=== PATIENT | female | born 1990 | race American Indian/Alaskan Native ===

== ENCOUNTER 2017-07-29 12:06 | Emergency (ER) | payer OTHER ==
--- NOTE | 2017-07-29 12:54 | UC ---
Throat Pain/Nasal Howard HPI - HPI Summary HPI Summary: Patient presents to with CC of cough, nasal congestion and assocated fevers. She reports symptoms began 4 days ago and progressively worsening. She reports chest pain and shortness of breath during coughing fits for the past 2 days. She feels "pressure" in her chest "when I cough" intermittently productive of clear sputum. She reports intermittent fevers responsive to ibuprofen. She complains of myalgias and chills, but no n/v/abd pain or bowel irregulariteis. no sick contacts. History of asthma, but no relief from albuterol inhaler use. Nonsmoker. PMHx of asthma, seasonal allergies. - History of Current Complaint Chief Complaint: UCGeneralIllness Stated Complaint: RESPIRATORY Time Seen by Provider: 07/29/17 12:53 Hx Obtained From: Patient Hx Last Menstrual Period: tubal - Allergies/Home Medications Allergies/Adverse Reactions: Allergies Allergy/AdvReac Type Severity Reaction Status Date / Time Bee Venom Allergy Intermediate Swelling Verified 07/29/17 12:36 Iodine Allergy Mild Itching Verified 07/29/17 12:36 Iodinated Diagnostic Agents Allergy Itching Verified 07/29/17 12:36 Home Medications: Home Medications [id number] [Vicks Dayquil/Nyquil Marija] 1 liq PO DAILY [History Confirmed 07/29/17] PMH/Surg Hx/FS Hx/Imm Hx - Additional Past Medical History Additional PMH: see hpi Previously Healthy: Yes - Surgical History Surgical History: Yes Surgery Procedure, Year, and Place: jaw repair, T & A, appy, cholecystectomy, TUBAL - Family History Known Family History: Positive: Unknown - Social History Alcohol Use: Rare Substance Use Type: None Smoking Status (MU): Never Smoked Tobacco Review of Systems All Other Systems Reviewed And Are Negative: Yes Physical Exam Triage Information Reviewed: Yes Appearance: Well-Appearing, No Pain Distress, Well-Nourished Vital Signs: Initial Vital Signs Temp 97.5 F 07/29/17 12:32 Pulse 79 07/29/17 12:32 Resp 16 07/29/17 12:32 BP 124/72 07/29/17 12:32 Pulse Ox 97 07/29/17 12:32 Vital Signs Reviewed: Yes Eye Exam: Normal Eyes: Positive: Conjunctiva Clear ENT: Positive: Hearing grossly normal, Pharynx normal, Pharyngeal erythema - mild, Nasal congestion, Nasal drainage, TMs normal, Uvula midline Dental Exam: Normal Neck exam: Normal Neck: Positive: Supple, Nontender, No Lymphadenopathy. Negative: Nuchal Rigidity Respiratory Exam: Normal Respiratory: Positive: Chest non-tender, Lungs clear, Normal breath sounds, No respiratory distress, No accessory muscle use. Negative: Respiratory distress Cardiovascular Exam: Normal Cardiovascular: Positive: RRR, No Murmur, Pulses Normal, Brisk Capillary Refill Abdominal Exam: Normal Abdomen Description: Positive: Nontender, Soft Neurological: Positive: Alert Psychological: Positive: Age Appropriate Behavior Skin Exam: Normal Throat Pain/Nasal Course/Dx - Differential Dx/Diagnosis Provider Diagnoses: Viral URI with post nasal drip. Discharge - Discharge Plan Condition: Stable Disposition: HOME Forms: *Gen. Provider Communication Referrals: Sarmad Lei MD [Primary Care Provider] - If Needed Additional Instructions: As we discussed, you have a viral upper respiratory infection with post nasal drip. I advise Flonase nasal spray - twice daily in addition to restarting your daily allergy medication until symptoms improve. Please rest, and drink plenty of fluids. Your symptoms may persist for several more days, but should begin to feel better within 1 week. Should your symptoms worsen or not improve, please return or see your regular doctor for reevaluation.
[2017-07-29 13:17] VITALS: BP 124/72
== END 2017-07-29 13:25 | disposition home or self-care (01) ==
LOC: UCCORT 12:06
DX: J06.9 Acute upper respiratory infection, unspecified (principal); R09.82 Postnasal drip
CPT/HCPCS: 99211; G0463

== ENCOUNTER 2019-06-14 08:24 | Emergency (ER) | payer OTHER ==
[2019-06-14 08:39] VITALS: BP 123/78
--- NOTE | 2019-06-14 08:58 | UC ---
Abdominal Pain Female HPI - HPI Summary HPI Summary: abdominal pain x 2 days pain is cramping, 5 out 10 worse with eating, nothing is making it better + nausea and vomiting , + fever, chills, no diarrhea, no constipation , no urinary sx - History of Current Complaint Chief Complaint: UCGeneralIllness Stated Complaint: FEVER,NAUSEA,BODY ACHES,CHILLS Time Seen by Provider: 06/14/19 08:44 Hx Obtained From: Patient Hx Last Menstrual Period: 04/2019- TUBAL ?: No Onset/Duration: Gradual Onset, Lasting Days - 1, Still Present Timing: Constant Severity Initially: Moderate Severity Currently: Moderate Pain Intensity: 5 Location: Diffuse Radiates: No Character: Cramping Aggravating Factor(s): Food Alleviating Factor(s): NPO Associated Signs and Symptoms: Positive: Fever, Cough, Decreased Appetite, Nausea, Vomiting. Negative: Diaphoresis, Chest Pain, Back Pain, Urinary Symptoms, Vaginal Bleeding, Vaginal Discharge, Diarrhea Allergies/Adverse Reactions: Allergies Allergy/AdvReac Type Severity Reaction Status Date / Time bee venom protein (honey bee) Allergy Swelling Verified 06/14/19 08:33 Iodinated Contrast Media Allergy Itching Verified 06/14/19 08:33 [Iodinated Contrast- Oral and IV Dye] iodine Allergy Itching Verified 06/14/19 08:33 Home Medications: Home Medications Acetaminophen TAB* [Tylenol TAB*] 650 mg PO Q4H PRN 06/14/19 [History Confirmed 06/14/19] PMH/Surg Hx/FS Hx/Imm Hx Respiratory History: Asthma - Surgical History Surgical History: Yes Surgery Procedure, Year, and Place: jaw repair, T & A, appy, cholecystectomy, TUBAL - Family History Known Family History: Positive: Unknown Negative: Diabetes - Social History Alcohol Use: Rare Substance Use Type: None Smoking Status (MU): Never Smoked Tobacco Review of Systems All Other Systems Reviewed And Are Negative: Yes Constitutional: Positive: Fever, Chills, Fatigue Skin: Positive: Negative Eyes: Positive: Negative ENT: Positive: Negative Respiratory: Positive: Cough Cardiovascular: Positive: Negative Gastrointestinal: Positive: Abdominal Pain, Vomiting, Nausea. Negative: Diarrhea Genitourinary: Positive: Negative Is Patient Immunocompromised?: No Physical Exam Triage Information Reviewed: Yes Appearance: Well-Appearing, No Pain Distress, Well-Nourished Vital Signs: Initial Vital Signs Temp 98.4 F 06/14/19 08:34 Pulse 80 06/14/19 08:34 Resp 18 06/14/19 08:34 BP 123/78 06/14/19 08:34 Pulse Ox 97 06/14/19 08:34 Vital Signs Reviewed: Yes Eye Exam: Normal Eyes: Positive: Conjunctiva Clear ENT: Positive: Normal ENT inspection, Hearing grossly normal, Pharynx normal Neck: Positive: Supple, Nontender, No Lymphadenopathy Respiratory: Positive: Chest non-tender, Lungs clear, Normal breath sounds Cardiovascular: Positive: RRR, No Murmur, Pulses Normal Abdominal Exam: Normal Abdomen Description: Positive: Nontender, Soft. Negative: CVA Tenderness (R), CVA Tenderness (L), Distended, Guarding Bowel Sounds: Positive: Present Abd Pain Female Course/Dx - Differential Dx/Diagnosis Provider Diagnosis: Gastritis Discharge ED - Sign-Out/Discharge Documenting (check all that apply): Patient Departure All imaging exams completed and their final reports reviewed: No Studies - Discharge Plan Condition: Stable Disposition: HOME Prescriptions: Ondansetron ODT TAB* [Zofran 4 MG Odt TAB*] 8 mg PO Q8H PRN #9 tab.odt PRN Reason: Nausea/Vomiting Patient Education Materials: Viral Syndrome (ED) Forms: *Work Release Referrals: Sarmad Lei MD [Primary Care Provider] - If Needed - Billing Disposition and Condition Condition: STABLE Disposition: Home
== END 2019-06-14 08:55 | disposition home or self-care (01) ==
LOC: UCCORT 08:24
DX: K29.70 Gastritis, unspecified, without bleeding (principal); R53.83 Other fatigue; J45.909 Unspecified asthma, uncomplicated; Z91.09 Other allergy status, other than to drugs and biological substances; Z91.030 Bee allergy status; Z91.041 Radiographic dye allergy status
CPT/HCPCS: 99212; G0463

== ENCOUNTER 2019-12-03 12:53 | Emergency (ER) | payer OTHER ==
--- NOTE | 2019-12-03 13:04 | UC ---
FLU HPI - HPI Summary HPI Summary: Patient is a 29yo female presenting with sob, cough, and fever. States cough and sob began last night and fever of 101 occurred this morning at 7am. Patient also notes chills and body aches since last night. Cough is nonproductive. Denies nasal congestion and sore throat. SOB is constant but notes that she believes some of it may be from anxiety. Has noticed wheezing at times. Denies chest pain and discomfort. Notes fatigue and decreased appetite since yesterday. Denies n/v/d. Notes PMHx significant for asthma, which she uses and albuterol inhaler for every day and is well controlled. States she used it yesterday but needs a refill because she is now out. Has a symbicort inhaler as well but states she has not needed it. Taking tylenol today with fever relief. Denies known ill contacts. - History of Current Complaint Stated Complaint: FEVER,COUGH SOB Hx Obtained From: Patient Hx Last Menstrual Period: 04/2019- TUBAL - Allergy/Home Medications Allergies/Adverse Reactions: Allergies Allergy/AdvReac Type Severity Reaction Status Date / Time bee venom protein (honey bee) Allergy Swelling Verified 12/03/19 13:06 Iodinated Contrast Media Allergy Itching Verified 12/03/19 13:06 [Iodinated Contrast- Oral and IV Dye] iodine Allergy Itching Verified 12/03/19 13:06 Home Medications: Home Medications Acetaminophen TAB* [Tylenol TAB*] 650 mg PO Q4H PRN 06/14/19 [History Confirmed 12/03/19] Albuterol HFA INHALER* [Ventolin HFA Inhaler*] 2 puff INH Q6H PRN 12/03/19 [ History Confirmed 12/03/19] Albuterol HFA INHALER* [Ventolin HFA Inhaler*] 2 puff INH Q6H PRN #1 mdi [Rx] Budesonide/Formote 160/4.5(NF) [Symbicort 160/4.5 (NF)] 1 puff INH BID 12/03/19 [History Confirmed 12/03/19] PMH/Surg Hx/FS Hx/Imm Hx Respiratory History: Asthma Psychological History: Anxiety - Surgical History Surgical History: Yes Surgery Procedure, Year, and Place: jaw repair, T & A, appy, cholecystectomy, TUBAL - Family History Known Family History: Positive: Unknown Negative: Diabetes - Social History Alcohol Use: Rare Substance Use Type: None Smoking Status (MU): Never Smoked Tobacco Review of Systems All Other Systems Reviewed And Are Negative: Yes Constitutional: Positive: Fever, Chills, Fatigue ENT: Negative: Sore Throat, Sinus Congestion Respiratory: Positive: Shortness Of Breath, Cough Cardiovascular: Positive: Negative Gastrointestinal: Positive: Negative Musculoskeletal: Positive: Myalgia Neurological/Mental Status: Positive: Negative Psychological: Positive: Anxious Physical Exam - Summary Physical Exam Summary: Vital Signs Reviewed: Yes A+Ox3, no distress, well-appearing Eyes: Conjunctiva Clear ENT: Hearing grossly normal, TM x 2 clear, moist, uvula midline, no exudate, no erythema Neck: Positive: Supple, no LAD Respiratory: Positive: No respiratory distress, No accessory muscle use + CTA throughout no w/r Cardiovascular: RRR nl s1, s2 no m/r Musculoskeletal Exam: LAWSON x 4 without difficulty Neurological: Positive: Alert Psychological: Positive: age appropriate behavior Skin: Positive: no rash, no ecchymosis Vital Signs: Vital Signs (72 hours) 12/03/19 12:58 Temperature 97.9 F Pulse Rate 65 Respiratory 17 Rate Blood Pressure 125/82 (mmHg) O2 Sat by Pulse 99 Oximetry Lab Results 12/03/19 Range/Units 13:32 Influenza A (Rapid) Negative (Negative) Influenza B (Rapid) Negative (Negative) Flu Course/Dx - Course Course Of Treatment: Flu test was negative. I discussed flu result with the patient and informed her that she would receive the covid19 results from the health department within the next 3-5 days. I discussed self quarantining until results have been received and she is advised otherwise. I provided the patient with an inhaler as per patient's request to help with breathing. Instructed to go to the ED if she experiences worsening shortness of breath/difficulty breathing. Patient voiced understanding and agreed with treatment plan. All questions answered to the best of my abilities. - Differential Dx/Diagnosis Differential Diagnosis/HQI/PQRI: Bronchitis, Influenza, Upper Respiratory Infection Provider Diagnosis: Flu-like symptoms Discharge ED - Sign-Out/Discharge Documenting (check all that apply): Patient Departure All imaging exams completed and their final reports reviewed: No Studies - Discharge Plan Condition: Stable Disposition: HOME Prescriptions: Albuterol HFA INHALER* [Ventolin HFA Inhaler*] 2 puff INH Q6H PRN #1 mdi PRN Reason: Sob/Wheezing Patient Education Materials: Viral Syndrome (ED) Forms: COVID-19 Tested & Isolation Referrals: Sarmad Lei MD [Medical Doctor] - Additional Instructions: As discussed, you tested negative for the flu today. You also received testing for covid-19 today. You will be notified of the results within 3-5 days. You need to self-quarantine for the next 14 days unless otherwise advised by a healthcare provider. This means staying home and no contact with anyone who lives with you. You should not share your bedroom or bathroom. Food should be left outside your door for you to take once the other person has walked away. You may continue with tylenol. Increase your fluid intake. It is important that you have someone else picker tender your prescriptions. Go to the nearest emergency room or call 911 if you experience new or worsening symptoms. - Billing Disposition and Condition Condition: STABLE Disposition: Home - Attestation Statements Provider Attestation: I was available for consult. This patient was seen by the MARIELY. The patient was not presented to , seen by or examined by me -Sherly Ruvalcaba MD
[2019-12-03 13:23] VITALS: BP 125/82
[2019-12-03 13:44] LABS: Influenza A Molecular Negative (Negative); Influenza B Molecular Negative (Negative)
== END 2019-12-03 13:53 | disposition home or self-care (01) ==
LOC: UCCORT 12:53
DX: R06.02 Shortness of breath (principal); R05 Cough; R50.9 Fever, unspecified; M79.10 Myalgia, unspecified site; F41.9 Anxiety disorder, unspecified; Z20.828 Contact with and (suspected) exposure to other viral communicable diseases; Z88.3 Allergy status to other anti-infective agents; Z91.030 Bee allergy status; Z91.041 Radiographic dye allergy status
CPT/HCPCS: 87635; 99212; G0463